=== PATIENT | male | born 1950 | race Caucasian/White ===

== ENCOUNTER 2020-07-17 11:28 | Inpatient (IN) | payer MEDICARE, SELFPAY ==
[~2020-07-17] VITALS: Ht 177.8 cm; Wt 91.9 kg
[2020-07-17 18:30] VITALS: BP 156/84
[2020-07-17] MEDS ORDERED: GLUCOSE 4GM CHEW TABLET PO PRN (18:55)
[2020-07-17] MEDS ORDERED: MOM 30ML SUSPENSION UDC PO PRN (18:55)
[2020-07-17] MEDS ORDERED: GLUCAGON INJ 1MG VIAL SC PRN (18:55)
[2020-07-17] MEDS ORDERED: MAALOX 30 ML SUSP *UDC PO PRN (18:55)
[2020-07-17] MEDS ORDERED: MIRALAX *UNIT DOSE* 17GM PACKET PO PRN (19:15)
[2020-07-17] MEDS ORDERED: ONDANSETRON 4MG/2ML VIAL IV PRN (19:15)
--- NOTE | 2020-07-17 19:15 | HPEPDOC ---
[facility] Medical History & Physical Date of Admission Jul 17, 2020 Date of Service: Jul 17, 2020 Attending Physician: ALISHA MISHRA MD History and Physical CHIEF COMPLAINT: [70 y/o male with cc of ruq pain x1 day] HISTORY OF PRESENT ILLNESS: [This is a 70 y/o male with a pmh of CAD s/p CABG, IDDM, CVA, RA, HLD, HTN, hypothyroidism who presents to our hospital as a tx from [facility] for suspected cholecystitis. Patient states that he has been experiencing abdominal pain that is focused primarily on the right side and feels like a deep pressure. Patient states that the pain radiates across his epigastrum and his luq at times. Patient states that he believes he had this issue several years ago and that it went away on its own. Patient admits to some constipation, states that he had his first bowel movement today in several days. Patient states that he feels fine besides his abdominal pain and denies n/v/d, fevers, chills, chest pain, sob, dizziness, syncope, malaise, fatigue, peripheral edema. Patient found to have elevated wbc of 20 and lactic acid of 2.1 at [facility], but negative ct. patient transferred to us for further w/u and possible surgical intervention. ] PAST MEDICAL HISTORY: 1. [See HPI PAST SURGICAL HISTORY: 1. [CABG]. 2. [Carotid endarterectomy]. 3. [Unspecified knee surgery]. SOCIAL HISTORY: Tobacco use:[Denies] ETOH: [Denies] Illicit drug use: [Denies] FAMILY HISTORY: Reviewed - none pertinent ALLERGIES: Please see below. REVIEW OF SYSTEMS: CONSTITUTIONAL: [See HPI]. HEENT: [Denies uri sx]. CARDIOVASCULAR: [See HPI]. RESPIRATORY: [See HPI]. GASTROINTESTINAL: [See HPI]. GENITOURINARY: [Denies dysuria]. SKIN: [Denies rash]. MUSCULOSKELETAL: [Denies acute joint/back pain.]. NEUROLOGICAL: [See HPI]. ENDOCRINE: [Hx of DM]. HEMATOLOGIC/LYMPHATIC: [Denies easy bruising]. HOME MEDICATIONS: Please see below. PHYSICAL EXAMINATION: VITAL SIGNS: Please see below. GENERAL APPEARANCE: [This is a wdwn 70 y/o male. He is laying in bed in no acute respiratory distress.]. HEENT: [No mass or lesion. EOMI. No scleral icterus. Patient is very hard of hearing. Nares patent. Oral mucosa moist without erythema.]. CARDIOVASCULAR: [Regular rate, rhythm. No murmurs, rubs, gallops]. LUNGS: [Good air flow b/l. No murmurs, rubs, gallops]. ABDOMEN: [Moderately tender to epigastrum, mildly tender to RUQ. Soft, non distended.]. MUSCULOSKELETAL: [No joint deformity]. EXTREMITIES: [No peripheral edema. No overlying skin changes. Pulses intact.]. NEUROLOGICAL: [Speech clear. A+Ox3. No focal deficits.]. PSYCHIATRIC: [Mood and affect appear appropriate.]. LABORATORY DATA: See below. IMAGING: [CT performed at [facility] unrevealing for cholecystitis.] MICROBIOLOGY: Please see below. ASSESSMENT: [This is a 70 y/o male with a pmh of CAD s/p CABG, IDDM, CVA, RA, HLD, HTN, hypothyroidism who presents to our hospital as a tx from [facility] for suspected cholecystitis. Patient had elevated white count and lactic acid but negative ct at outside hospital. Transferred to us for further w/u and possible surgical intervention.]. . PLAN: 1. [RUQ pain - Patient is not having that much discomfort to raise immediate alarm for cholecystitis, however patient did have elevated lactic, dose have leukocytosis. - CT scan negative at outside hospital, will f/u with gallbladder us here - Will begin zosyn - NPO overnight, ivf will be given - Dr. Singh, surgery, has been consulted. Assistance greatly appreciated - Will trend white count, bilirubin - zofran for nausea - tylenol for pain - Will admit under obs to pcu 2. Constipation - colace, miralax, milk of mag, senna - can move to suppository if patient dose not have bm 3. IDDM - sliding scale - continue at home basal insulin dose - hypoglycemic protocol - continue havapentin 4. HTN - continue lasix, metoprolol 5. CAD s/p CABG - continue asa, nitro 6. Hypothyroidism - continue synthroid 7. GERD - continue omeprazole 8. DVT prophylaxis - teds and scds ]. Vital Signs Vital Signs Date Time Temp Pulse Resp B/P (MAP) Pulse Ox O2 Delivery O2 Flow Rate FiO2 07/17/20 18:30 97.6 107 18 156/84 (108) 98 Room Air Home Medications Scheduled Aspirin (Aspirin EC) 81 Mg Tablet.dr, 81 MG PO DAILY Furosemide (Furosemide) 20 Mg Tablet, 40 MG PO DAILY Furosemide (Furosemide) 20 Mg Tablet, 20 MG PO QPM TAKES AT DINNERTIME Gabapentin (Gabapentin) 300 Mg Capsule, 300 MG PO TID Gluc Mariscal/Chondro Mariscal A/Vit C/Mn (Glucosamine Chondroitin Tab) 1 Each Tablet, 1 TAB PO QHS Insulin Degludec (Tresiba Flextouch U-100) 100 Unit/1 Ml Insuln.pen, 54 UNIT SC DAILY Insulin Human Lispro (Novolog) 100 Unit/1 Ml Vial, 1 DOSE SC ACHS PER SLIDING SCALE Levothyroxine Sodium (Synthroid) 100 Mcg Tablet, 100 MCG PO DAILY Metoprolol Tartrate (Metoprolol Tartrate) 50 Mg Tablet, 50 MG PO BID [place]-3 Fatty Acids/Fish Oil (Fish Oil 1,000 mg Capsule) 1 Each Capsule, 1,000 MG PO QHS Omeprazole (Omeprazole) 40 Mg Capsule.dr, 40 MG PO DAILY Egdvewhwvglz-Bpzr-Yxemdmou,Iso (Zosyn 3.375 gm/50 ml Galaxy) 3.375 Gm/50 Ml Froz.piggy, 3.375 GM IV ASDIRECTED STARTED AT [facility] Potassium Chloride (Potassium Chloride) 10 Meq Tab.er.prt, 10 MEQ PO BID Semaglutide (Ozempic) 0.25 Mg/0.2 Ml Pen.injctr, 0.5 MG SC QWEEK THURSDAYS Sennosides (Senna) 8.6 Mg Tablet, 1 TAB PO BID Tamsulosin HCl (Flomax) 0.4 Mg Capsule, 0.4 MG PO DAILY Scheduled PRN Nitroglycerin (Nitrostat) 0.4 Mg Tab.subl, 0.4 MG SL NITRO PRN for CHEST PAIN Allergies Coded Allergies: No Known Drug Allergies (Verified Allergy, Unknown, 07/17/20) A-FIB/CHADSVASC A-FIB History Current/History of A-Fib/PAF?: No Attending Note Attending Note Time of service 735pm is a 70 yr old M w IDDM2 and obesity who was transferred from [facility] for evaluation of L sided abdominal pain On PE he his McBurney sign was negative He will be admitted for evaluation of abdominal pain whose cause is TBD. Pending US of the abdomen we will ask the day time team to f/u w . Rest per DOMINICK Vail Jul 17, 2020 19:15 ALISHA MISHRA MD Jul 17, 2020 20:50
[2020-07-17 19:55] LABS: BASO # 0.1 10^3/uL (0.0-0.2); BASO % 0.2 % (0.0-1.0); HEMATOCRIT 39.8 % (42.0-52.0); HEMOGLOBIN 13.5 g/dl (13.5-17.5); LYMPH # 1.2 10^3/uL (1.5-5.0); LYMPH % 5.3 % (24.0-44.0); MEAN CORPUSCULAR HEMOGLOBIN 32.7 pg (27.0-33.0); MEAN CORPUSCULAR HGB CONC 33.9 g/dl (32.0-36.5); MEAN CORPUSCULAR VOLUME 96.4 fl (80.0-96.0); MONO # 1.9 10^3/uL (0.0-0.8); MONO % 8.6 % (2.0-8.0); NEUTROPHILS # 18.7 10^3/uL (1.5-8.5); NEUTROPHILS % 85.4 % (36.0-66.0); PLATELET COUNT, AUTOMATED 193 10^3/uL (150-450); RED BLOOD COUNT 4.13 10^6/uL (4.30-6.10)
[2020-07-17 19:56] LABS: WHITE BLOOD COUNT 21.9 10^3/uL (4.0-10.0)
[2020-07-17] MEDS: DOCUSATE SODIUM 100MG CAPSULE PO SCH (20:05)
[2020-07-17] MEDS: ACETAMINOPHEN TAB 650MG DOSE (2X325MG) PO PRN (20:05)
[2020-07-17] MEDS: NS 1,000 ML IV SCH (20:05)
[2020-07-17] MEDS ORDERED: ZOSY1SOL5 IV (20:15)
[2020-07-17] MEDS ORDERED: INSUH10VL SC (20:15)
[2020-07-17] MEDS: PIPERACILLIN/TAZOBACTAM SOD 3.375 GM in D5W MINI-BAG PLUS 50 ML IV SCH (20:37)
[2020-07-17 20:42] LABS: ALBUMIN 3.3 GM/DL (3.2-5.2); ALT/SGPT 36 U/L (12-78); BILIRUBIN,TOTAL 1.3 MG/DL (0.2-1.0); BLOOD UREA NITROGEN 20 MG/DL (7-18); CALCIUM LEVEL 8.7 MG/DL (8.8-10.2); CARBON DIOXIDE LEVEL 29 MEQ/L (21-32); CHLORIDE LEVEL 105 MEQ/L (98-107); CREATININE FOR GFR 1.23 MG/DL (0.70-1.30); GLOMERULAR FILTRATION RATE > 60.0 (>42); GLUCOSE, FASTING 259 MG/DL (70-100); MAGNESIUM LEVEL 2.3 MG/DL (1.8-2.4); POTASSIUM SERUM 4.5 MEQ/L (3.5-5.1); SODIUM LEVEL 139 MEQ/L (136-145); TOTAL PROTEIN 6.5 GM/DL (6.4-8.2)
[2020-07-17] MEDS ORDERED: FURO20TA2 PO ×2 (22:51)
[2020-07-17] MEDS ORDERED: POTA10TA67 PO (22:51)
[2020-07-17] MEDS ORDERED: METO50TA7 PO (22:51)
[2020-07-17] MEDS ORDERED: GLUCTAB6 PO (22:51)
[2020-07-17] MEDS ORDERED: FLOM0.4C39 PO (22:51)
[2020-07-17] MEDS ORDERED: FISH1000 PO (22:51)
[2020-07-17] MEDS ORDERED: GABA-282 PO (22:51)
[2020-07-17] MEDS ORDERED: SENN8.6T28 PO (22:51)
[2020-07-17] MEDS ORDERED: SYNT100T PO (22:51)
[2020-07-17] MEDS ORDERED: ASPI-161 PO (22:51)
[2020-07-17] MEDS ORDERED: OMEP-221 PO (22:51)
[2020-07-17] MEDS ORDERED: TRES1INJ2 SC (22:51)
[2020-07-17] MEDS ORDERED: NITR4TASL SL (22:51)
[2020-07-17] MEDS ORDERED: OZEM2INJ SC (22:51)
[2020-07-17] MEDS ORDERED: ATOR40TA75 PO (22:52)
[2020-07-18] VITALS: BP 149/70
[2020-07-18] MEDS ORDERED: FIORICET TAB PO PRN (00:20)
[2020-07-18] MEDS: HumaLOG INSULIN (NovoLOG) PER UNIT SC SCH ×5 (00:44→23:47)
[2020-07-18] MEDS ORDERED: NITROGLYCERIN 0.4 MG SUBL TABLET SL PRN (00:45)
[2020-07-18] MEDS: NS 1,000 ML IV SCH ×3 (00:45→19:00)
[2020-07-18] MEDS: PIPERACILLIN/TAZOBACTAM SOD 3.375 GM in D5W MINI-BAG PLUS 50 ML IV SCH ×4 (03:00→21:21)
[2020-07-18 05:39] VITALS: BP 123/61
[2020-07-18] MEDS: LEVOTHYROXINE 100MCG TABLET (0.1MG) PO SCH (06:27)
--- NOTE | 2020-07-18 07:01 | REPVR ---
PROCEDURE INFORMATION: Exam: US Abdomen, Limited; Right Upper Quadrant Exam date and time: 07/18/2020 6:24 AM Age: 70 years old Clinical indication: Abdominal pain; Additional info: Ruq pain TECHNIQUE: Imaging protocol: US abdomen. Real time ultrasound with image documentation. Limited exam focused on the right upper quadrant. COMPARISON: No relevant prior studies available. FINDINGS: Liver: Homogeneous appearance of the liver. Gallbladder: Diameter of the gallbladder wall 0.76 cm. Cholelithiasis at the gallbladder neck. Image 29 suggest the possibility of small rim of pericholecystic fluid versus edema within the thickened gallbladder wall. Common bile duct: There is no definite suggestion of intrahepatic biliary ductal prominence. Extrahepatic common bile duct is not visualized presumably also secondary to significant bowel gas. Pancreas: The pancreas is not delineated presumably secondary to overlapping bowel gas. Right kidney: The right kidney measures 11.8 x 6.1 x 5.9 cm. No hydronephrosis. IMPRESSION: 1. Cholelithiasis. 2. Cholecystitis with wall thickening which could be acute or chronic. In light of correlation to symptoms acute cholecystitis may be favored. 3. Nonvisualized pancreas or extrahepatic bile ducts. Electronically signed by: Autumn Crystal On 07/18/2020 07:00:41 AM
[2020-07-18 08:01] VITALS: BP 135/73
[2020-07-18 08:16] LABS: HEMATOCRIT 38.9 % (42.0-52.0); HEMOGLOBIN 13.2 g/dl (13.5-17.5); MEAN CORPUSCULAR HEMOGLOBIN 33.1 pg (27.0-33.0); MEAN CORPUSCULAR HGB CONC 33.9 g/dl (32.0-36.5); MEAN CORPUSCULAR VOLUME 97.5 fl (80.0-96.0); PLATELET COUNT, AUTOMATED 179 10^3/uL (150-450); RED BLOOD COUNT 3.99 10^6/uL (4.30-6.10); WHITE BLOOD COUNT 22.4 10^3/uL (4.0-10.0)
[2020-07-18] MEDS: METOPROLOL TART 50 MG TAB PO SCH ×2 (08:29→21:21)
[2020-07-18] MEDS: TAMSULOSIN 0.4 MG CAP PO SCH (08:29)
[2020-07-18] MEDS: ASPIRIN 81MG ENTERIC TABLET PO SCH (08:29)
[2020-07-18] MEDS: GABAPENTIN 300 MG CAP PO SCH ×3 (08:30→21:20)
[2020-07-18] MEDS: OMEPRAZOLE 20 MG CAP PO SCH (08:30)
[2020-07-18] MEDS: DOCUSATE SODIUM 100MG CAPSULE PO SCH ×2 (08:30→21:20)
[2020-07-18] MEDS: ACETAMINOPHEN TAB 650MG DOSE (2X325MG) PO PRN ×2 (08:30→16:28)
[2020-07-18] MEDS: SENNA 8.6 MG TAB (SENOKOT) PO SCH ×2 (08:30→21:20)
[2020-07-18 08:43] LABS: ALBUMIN 3.1 GM/DL (3.2-5.2); ALT/SGPT 32 U/L (12-78); BILIRUBIN,TOTAL 0.9 MG/DL (0.2-1.0); BLOOD UREA NITROGEN 15 MG/DL (7-18); CALCIUM LEVEL 8.6 MG/DL (8.8-10.2); CARBON DIOXIDE LEVEL 25 MEQ/L (21-32); CHLORIDE LEVEL 107 MEQ/L (98-107); CREATININE FOR GFR 1.01 MG/DL (0.70-1.30); GLOMERULAR FILTRATION RATE > 60.0 (>42); GLUCOSE, FASTING 204 MG/DL (70-100); MAGNESIUM LEVEL 2.3 MG/DL (1.8-2.4); POTASSIUM SERUM 4.4 MEQ/L (3.5-5.1); SODIUM LEVEL 138 MEQ/L (136-145); TOTAL PROTEIN 6.2 GM/DL (6.4-8.2)
--- NOTE | 2020-07-18 08:43 | IPNPDOC ---
Text Note Date of Service The patient was seen on 07/18/20. NOTE Gen. surgery. Dr. Singh. The patient is a 70-year-old male transferred from [facility] for suspected cholecystitis 07/17/20. The patient had reported some abdominal pain on the right side radiating to the epigastric area intermittently. This morning, the patient denies any abdominal pain. Denies nausea or vomiting. Denies diarrhea, had 1 bowel movement last evening. Temp 101.1 at 0801 this morning. Heart rate 118, respiratory rate 20, blood pressure 135/73, 97% room air. General. Awake and alert, the patient was resting comfortably in bed, easily arousable, no acute distress. MMM Abdomen. Soft, nontender, nondistended. This morning the patient is stating there is no tenderness with palpation over the epigastric or right upper quadrant areas. No guarding or rebound. WBC 22.4 increased slightly, hemoglobin 13.2, platelets 179 LFTs on admission within normal limits. CMP pending this morning. BC x 1 pending Assessment/plan The patient is a 70-year-old male admitted with suspected cholecystitis and had reported some abdominal pain on the right side radiating to the epigastric area. This morning, the patient reports no epigastric or right upper quadrant ten derness or discomfort. The patient is also reviewed and examined as per Dr. Singh. Right upper quadrant ultrasound imaging is reviewed by Dr. Singh. The patient appears to have a chronically thickened gallbladder wall. This is felt to be unlikely the source of the patient's current infection. However, WBC has increased and the pt is noted to have elevated temp this AM. We will request a HIDA scan to further evaluate for evidence of acute cholecystitis. VS,Fishbone, I+O VS, Fishbone, I+O Laboratory Tests 07/17/20 19:38 07/18/20 07:50 Vital Signs Date Time Temp Pulse Resp B/P (MAP) Pulse Ox O2 Delivery O2 Flow Rate FiO2 07/18/20 08:01 101.1 18 20 135/73 (93) 97 Room Air I&O- Last 24 Hours up to 6 AM 07/18/20 05:59 Intake Total 675 ml Output Total 800 ml Balance -125 ml Charlotte Looney Jul 18, 2020 08:43
[2020-07-18] MEDS ORDERED: FUROSEMIDE 40 MG TAB PO SCH (09:00)
[2020-07-18] MEDS ORDERED: LEVEMIR (INSULIN DETEMIR) 1 UNITS/0.01ML SC SCH ×2 (09:00)
[2020-07-18] MEDS ORDERED: ISOVUE-370 76% 100ML VIAL As Ordered ONE (11:24)
--- NOTE | 2020-07-18 11:27 | IPNPDOC ---
Text Note Date of Service The patient was seen on 07/18/20. NOTE Subjective: Patient was febrile overnight with temperature of 101.1. He stated that he feels better, but continues to have right upper quadrant pain. Objective: GENERAL APPEARANCE: NAD HEENT: no scleral icterus, no JVD, EOMI CARDIOVASCULAR: S1S2 LUNGS: CTA ABDOMEN: soft & mildly tender w palpitation in the right upper quadrant MUSCULOSKELETAL: no cyanosis, no swelling INTEGUMENT: no generalized pallor NEUROLOGICAL: cranial nerve function from 2-12 intact intact, follows commands, speech not dysarthric Assessment and plan Patient 70 years old male with past history of CAD s/p CABG, IDDM, CVA, RA, HLD, HTN, hypothyroidism who presents to our hospital as a tx from [facility] with right upper quadrant pain. Sepsis Unknown source of infection for now. There is suspicion for acute cholecystitis Patient developed fever of 101.1, leukocytosis, tachycardia Repeat blood culture CT abdomen/pelvis, CT chest IV fluid Continue Zosyn IV Right upper quadrant pain Patient developed fever, right upper quadrant pain Ultrasound showed Cholecystitis with wall thickening which could be acute or chronic Will proceed with HIDA scan Surgical team follows him LFT shows improvement, total bilirubin in the morning with in normal limit Type 2 diabetes Insulin sliding scale Detemir twice a day Hypertension Blood pressures under control Continue home meds Coronary artery diseases, status post CABG Continue home cardioprotective medications Hypothyroidism Continue Synthroid GERD Continue PPI VS,Fishbone, I+O VS, Fishbone, I+O Laboratory Tests 07/17/20 19:38 07/18/20 07:50 Vital Signs Date Time Temp Pulse Resp B/P (MAP) Pulse Ox O2 Delivery O2 Flow Rate FiO2 07/18/20 08:29 18 135/73 07/18/20 08:01 101.1 20 97 Room Air I&O- Last 24 Hours up to 6 AM 07/18/20 05:59 Intake Total 675 ml Output Total 800 ml Balance -125 ml GEE GORDNO DO Jul 18, 2020 11:27
--- NOTE | 2020-07-18 11:56 | REP ---
INDICATION: sepsis COMPARISON: None. TECHNIQUE: Standard helical technique after the intravenous administration of 100 cc Isovue 370. FINDINGS: There is no mediastinal or hilar adenopathy. There are no pleural or pericardial effusions. The imaged osseous structures are within normal limits. For comment on the imaged upper abdomen see CT abdomen and pelvis report made same day. Evaluation of the lung tatum shows scattered curvilinear densities throughout the lung tatum particularly in the lung bases consistent with fibrotic and/or subsegmental atelectatic changes. No abnormal nodules or masses are present. The aforementioned findings are accentuated by pulmonary field hypoexpansion IMPRESSION: Likely chronic lung field changes as described above but with no priors for comparison. There is no revised Fleischner society criteria on the recommendation for follow-up of such findings. Short interval follow-up is suggested. <Electronically signed by Alexsander Colón > 07/18/20 [id number]
--- NOTE | 2020-07-18 12:05 | REP ---
INDICATION: sepsis. COMPARISON: No prior CTs TECHNIQUE: Standard helical technique after the intravenous administration of 100 cc Isovue 370. No oral bowel preparatory contrast was administered prior to the exam. FINDINGS: There is pericholecystic edema with gallbladder wall thickening and enhancement. Within the gallbladder lumen there is a round 1.5 cm sized focal area of increased density without spray artifact. The overall density is much less than calcium. The liver is within normal limits. The spleen, pancreas, adrenal glands, and kidneys are within normal limits. The abdominal aorta and para-aortic regions are within normal limits. Nonenlarged para-aortic lymph nodes are noted. There is no evidence of free intraperitoneal air. The bowel loops and the mesenteries are within normal limits although seen in a limited fashion. The osseous structures are within normal limits for the patient's age. IMPRESSION: 1. Findings involving the gallbladder, as described above, consistent with inflammatory changes. 2. Round density within the gallbladder lumen as described above. Prior ultrasound showed cholelithiasis. No dense choleliths are seen by CT. The density could represent a sludge ball possibly even an enhancing mass. Follow-up is recommended. 3. There is increased subcutaneous density in the right anterior mid abdomen confined to the adipose tissue in the etiology of which is uncertain. This potentially represents an area of previous injection sites. Needs to be correlated clinically. <Electronically signed by Alexsander Colón > 07/18/20 [id number]
[2020-07-18] MEDS: POTASSIUM CHLORIDE 10 MEQ SR TABLET PO SCH ×2 (12:39→21:21)
[2020-07-18 12:59] VITALS: BP 124/67
[2020-07-18 16:20] VITALS: BP 119/58
[2020-07-18] MEDS ORDERED: FUROSEMIDE 20 MG TAB PO SCH (17:00)
[2020-07-18 20:00] VITALS: BP 115/56
[2020-07-18] MEDS: DEXTROSE 50% 50 ML SYRINGE IV PRN ×2 (20:05→23:47)
--- NOTE | 2020-07-18 20:14 | CR ---
CONSULTATION DATE: 07/17/2020 HISTORY OF PRESENT ILLNESS: The patient presented to the hospital after being seen in [facility] for abdominal pain with elevated white count. The pain mostly was across the epigastric area in his left upper quadrant and states that it was all across his upper abdomen. Then this has improved substantially and mostly has resolved at this time. He has had a previous episode in past that had resolved on its own although I am not sure exactly if he had cholecystitis. The patient had a CT scan at [facility] and reportedly was normal for the gallbladder area. There were some mildly elevated liver function tests. PAST MEDICAL HISTORY: Significant for a history of coronary artery disease, status post CABG, history of insulin dependent diabetes mellitus, history of CVA, history of rheumatoid arthritis, history of hyperlipidemia, history of hypertension, history of knee surgery. MEDICATIONS: 1. Aspirin. 2. Lasix. 3. Gabapentin. 4. Glucosamine. 5. Insulin. 6. Synthroid. 7. Metoprolol. 8. Omeprazole. 9. Ozempic. 10. Senna. 11. Flomax. 12. P.r.n. nitro. 13. He was placed on Zosyn at the outside hospital. PHYSICAL EXAMINATION: GENERAL APPEARANCE: The patient is a 70-year-old male who is quite hard of hearing but essentially states that he has no complaints of pain or discomfort at this time. LUNGS: Clear anteriorly. HEART: Regular with multiple irregular beats. ABDOMEN: Soft, mildly uncomfortable in the epigastric area but no significant guarding or rebound, no significant right upper quadrant pain or left upper quadrant pain. IMPRESSION AND PLAN: The patient had abdominal pain of undetermined etiology. At this point, I am not convinced that he has cholecystitis given that he really does not have impressive abdominal exam and I do agree he needs an ultrasound. I have been waiting for that to be performed here but it looks they will not be doing that until tomorrow morning. But in any case supportive care is warranted at this time with IV fluids, IV antibiotics and NPO. We will see how things look in the morning. If his white count is trending up or his bilirubin is trending up, we may need an MRI or a HIDA scan. However, if he is relatively stable or continues to have minimal discomfort or pain, we may want to look for other etiologies for his abdominal pain. In any case, we will await the findings on the ultrasound as well. Otherwise, I am not seeing an abdominal etiology for this at this time given the negative CT scan and the improving/resolving abdominal discomfort and pain with a significant lactic acidosis and elevated white count.
[2020-07-18] MEDS: LEVEMIR (INSULIN DETEMIR) 1 UNITS/0.01ML SC SCH (21:00)
[2020-07-18] MEDS: HEPARIN SOD (PORCINE) 5000UNITS/ML 1ML VIAL/SYRINGE SQ SCH (21:21)
[2020-07-18] MEDS ORDERED: HumaLOG INSULIN (NovoLOG) PER UNIT SC SCH (22:00)
[2020-07-19] VITALS: BP 100/57
[2020-07-19 04:00] VITALS: BP 115/58
[2020-07-19] MEDS: HumaLOG INSULIN (NovoLOG) PER UNIT SC SCH ×4 (04:00→16:58)
[2020-07-19] MEDS: PIPERACILLIN/TAZOBACTAM SOD 3.375 GM in D5W MINI-BAG PLUS 50 ML IV SCH ×4 (04:07→20:50)
[2020-07-19] MEDS: NS 1,000 ML IV SCH (04:07)
[2020-07-19 05:32] LABS: HEMATOCRIT 34.7 % (42.0-52.0); HEMOGLOBIN 11.4 g/dl (13.5-17.5); MEAN CORPUSCULAR HEMOGLOBIN 32.3 pg (27.0-33.0); MEAN CORPUSCULAR HGB CONC 32.9 g/dl (32.0-36.5); MEAN CORPUSCULAR VOLUME 98.3 fl (80.0-96.0); PLATELET COUNT, AUTOMATED 167 10^3/uL (150-450); RED BLOOD COUNT 3.53 10^6/uL (4.30-6.10); WHITE BLOOD COUNT 16.1 10^3/uL (4.0-10.0)
[2020-07-19] MEDS: LEVOTHYROXINE 100MCG TABLET (0.1MG) PO SCH (05:56)
[2020-07-19 06:03] LABS: ALBUMIN 2.6 GM/DL (3.2-5.2); ALT/SGPT 26 U/L (12-78); BILIRUBIN,TOTAL 0.7 MG/DL (0.2-1.0); BLOOD UREA NITROGEN 15 MG/DL (7-18); CALCIUM LEVEL 8.2 MG/DL (8.8-10.2); CARBON DIOXIDE LEVEL 25 MEQ/L (21-32); CHLORIDE LEVEL 110 MEQ/L (98-107); CREATININE FOR GFR 1.13 MG/DL (0.70-1.30); GLOMERULAR FILTRATION RATE > 60.0 (>42); GLUCOSE, FASTING 114 MG/DL (70-100); MAGNESIUM LEVEL 2.2 MG/DL (1.8-2.4); POTASSIUM SERUM 4.3 MEQ/L (3.5-5.1); SODIUM LEVEL 142 MEQ/L (136-145); TOTAL PROTEIN 5.5 GM/DL (6.4-8.2)
[2020-07-19 08:00] VITALS: BP 102/58
--- NOTE | 2020-07-19 09:03 | IPNPDOC ---
Text Note Date of Service The patient was seen on 07/19/20. NOTE Gen. surgery. Dr. Singh. The patient is a 70-year-old male transferred from [facility] for suspected cholecystitis 07/17/20. The patient had reported some abdominal pain on the right side radiating to the epigastric area intermittently. This morning, the patient is out of bed to the chair, having clear liquids for breakfast. Denies abdominal pain. Denies nausea or vomiting. Denies diarrhea, had 1 bowel movement 07/18. Afebrile. Heart rate 71, and respiratory rate 19, blood pressure 1:15/58, 98% room air. General. Awake and alert, the patient is out of bed to the chair, no acute distress. MMM Abdomen. Soft, nontender, nondistended. The patient has only minimal pain at most with deep palpation in the right upper quadrant area, no epigastric tenderness. No guarding or rebound. WBC 16.1, decreased, hemoglobin 11.4, platelets 167 BC x 1 negative, 2 pending Assessment/plan The patient is a 70-year-old male admitted with suspected cholecystitis and had reported some abdominal pain on the right side radiating to the epigastric area. This morning, the patient reports he is feeling better and is denying pain currently. The patient is also reviewed and examined as per Dr. Singh. Right upper quadrant ultrasound imaging is reviewed by Dr. Singh. The patient appears to have a chronically thickened gallbladder wall. The patient is currently afebrile with downtrending WBC. HIDA scan and ultrasound guided drain placement was placed on hold as the patient is having only minimal pain, has been afebrile, leukocytosis is improving. Currently tolerating clear liquids. Monitor. VS,Fishbone, I+O VS, Fishbone, I+O Laboratory Tests 07/19/20 05:13 Vital Signs Date Time Temp Pulse Resp B/P (MAP) Pulse Ox O2 Delivery O2 Flow Rate FiO2 07/19/20 08:00 98.3 91 18 102/58 (73) 96 Room Air I&O- Last 24 Hours up to 6 AM 07/19/20 06:00 Intake Total 2150 ml Output Total 900 ml Balance 1250 ml Charlotte Looney Jul 19, 2020 09:03
[2020-07-19] MEDS: OMEPRAZOLE 20 MG CAP PO SCH (10:08)
[2020-07-19] MEDS: SENNA 8.6 MG TAB (SENOKOT) PO SCH ×2 (10:08→20:50)
[2020-07-19] MEDS: POTASSIUM CHLORIDE 10 MEQ SR TABLET PO SCH ×2 (10:08→20:51)
[2020-07-19] MEDS: DOCUSATE SODIUM 100MG CAPSULE PO SCH ×2 (10:08→20:49)
[2020-07-19] MEDS: METOPROLOL TART 50 MG TAB PO SCH ×2 (10:08→20:55)
[2020-07-19] MEDS: TAMSULOSIN 0.4 MG CAP PO SCH (10:08)
[2020-07-19] MEDS: ASPIRIN 81MG ENTERIC TABLET PO SCH (10:09)
[2020-07-19] MEDS: GABAPENTIN 300 MG CAP PO SCH ×3 (10:09→20:51)
[2020-07-19] MEDS: LEVEMIR (INSULIN DETEMIR) 1 UNITS/0.01ML SC SCH ×3 (10:09→20:53)
[2020-07-19] MEDS: HEPARIN SOD (PORCINE) 5000UNITS/ML 1ML VIAL/SYRINGE SQ SCH ×2 (10:09→20:50)
[2020-07-19 12:00] VITALS: BP 100/56
[2020-07-19] MEDS ORDERED: DEXTROSE 50% 50 ML SYRINGE IV PRN (12:30)
[2020-07-19] MEDS ORDERED: GLUCAGON INJ 1MG VIAL SC PRN (12:30)
[2020-07-19] MEDS ORDERED: GLUCOSE 4GM CHEW TABLET PO PRN (12:30)
--- NOTE | 2020-07-19 14:50 | IPNPDOC ---
Text Note Date of Service The patient was seen on 07/19/20. NOTE Subjective: No any acute events overnight. Patient stated that his abdominal pain resolved and he has a good appetite. Objective: GENERAL APPEARANCE: NAD HEENT: no scleral icterus, no JVD, EOMI CARDIOVASCULAR: S1S2 LUNGS: CTA ABDOMEN: soft & non-tender w palpitation MUSCULOSKELETAL: no cyanosis, no swelling INTEGUMENT: no generalized pallor NEUROLOGICAL: cranial nerve function from 2-12 intact intact, follows commands, speech not dysarthric Assessment and plan Patient 70 years old male with past history of CAD s/p CABG, IDDM, CVA, RA, HLD, HTN, hypothyroidism who presents to our hospital as a tx from [facility] with right upper quadrant pain. Sepsis Unknown source of infection for now. There was suspicion for acute cholecystitis Patient developed fever of 101.1, leukocytosis, tachycardia on admission Repeat blood culture negative CT abd/pelvis there is pericholecystic edema with gallbladder wall thickening and enhancement. Within the gallbladder lumen there is a round 1.5 cm sized focal area of increased density without spray artifact Continue Zosyn IV Leukocytosis improved Right upper quadrant pain Patient developed fever, right upper quadrant pain Ultrasound showed Cholecystitis with wall thickening which could be acute or chronic No needs for surgical intervention per Surgical team LFT shows improvement Patient tolerates clear liquid diet Type 2 diabetes Insulin sliding scale Detemir twice a day Hypertension Blood pressures under control Continue home meds Coronary artery diseases, status post CABG Continue home cardioprotective medications Hypothyroidism Continue Synthroid GERD Continue PPI VS,Fishbone, I+O VS, Fishbone, I+O Laboratory Tests 07/19/20 05:13 Vital Signs Date Time Temp Pulse Resp B/P (MAP) Pulse Ox O2 Delivery O2 Flow Rate FiO2 07/19/20 12:00 99.3 75 18 100/56 (71) 97 Room Air I&O- Last 24 Hours up to 6 AM 07/19/20 06:00 Intake Total 2150 ml Output Total 900 ml Balance 1250 ml GEE GORDON DO Jul 19, 2020 14:50
--- NOTE | 2020-07-19 14:52 | IPNPDOC ---
Text Note Date of Service The patient was seen on 07/19/20. NOTE Subjective: No any acute events overnight. Patient stated that his abdominal pain resolved and he has a good appetite. VS,Fishbone, I+O VS, Fishbone, I+O Laboratory Tests 07/19/20 05:13 Vital Signs Date Time Temp Pulse Resp B/P (MAP) Pulse Ox O2 Delivery O2 Flow Rate FiO2 07/19/20 12:00 99.3 75 18 100/56 (71) 97 Room Air I&O- Last 24 Hours up to 6 AM 07/19/20 06:00 Intake Total 2150 ml Output Total 900 ml Balance 1250 ml GEE GORDON DO Jul 19, 2020 14:52
[2020-07-19 20:00] VITALS: BP 143/65
[2020-07-19] MEDS: ACETAMINOPHEN TAB 650MG DOSE (2X325MG) PO PRN (20:51)
[2020-07-19] MEDS ORDERED: HumaLOG INSULIN (NovoLOG) PER UNIT SC SCH (21:00)
[2020-07-20] MEDS: PIPERACILLIN/TAZOBACTAM SOD 3.375 GM in D5W MINI-BAG PLUS 50 ML IV SCH ×2 (03:09→09:34)
[2020-07-20 03:57] LABS: HEMATOCRIT 33.1 % (42.0-52.0); MEAN CORPUSCULAR HEMOGLOBIN 32.9 pg (27.0-33.0); MEAN CORPUSCULAR HGB CONC 33.2 g/dl (32.0-36.5); MEAN CORPUSCULAR VOLUME 99.1 fl (80.0-96.0); PLATELET COUNT, AUTOMATED 180 10^3/uL (150-450); RED BLOOD COUNT 3.34 10^6/uL (4.30-6.10)
[2020-07-20 04:23] LABS: ALBUMIN 2.5 GM/DL (3.2-5.2); ALT/SGPT 35 U/L (12-78); BILIRUBIN,TOTAL 0.7 MG/DL (0.2-1.0); BLOOD UREA NITROGEN 16 MG/DL (7-18); CALCIUM LEVEL 8.2 MG/DL (8.8-10.2); CARBON DIOXIDE LEVEL 25 MEQ/L (21-32); CHLORIDE LEVEL 110 MEQ/L (98-107); GLOMERULAR FILTRATION RATE > 60.0 (>42); GLUCOSE, FASTING 50 MG/DL (70-100); MAGNESIUM LEVEL 2.2 MG/DL (1.8-2.4); POTASSIUM SERUM 4.2 MEQ/L (3.5-5.1); SODIUM LEVEL 142 MEQ/L (136-145); TOTAL PROTEIN 5.4 GM/DL (6.4-8.2)
[2020-07-20 04:27] VITALS: BP 92/51
[2020-07-20] MEDS: LEVOTHYROXINE 100MCG TABLET (0.1MG) PO SCH (06:23)
[2020-07-20] MEDS ORDERED: SLF 3 ML SYR IV PRN (07:55)
[2020-07-20 08:00] VITALS: BP 115/60
--- NOTE | 2020-07-20 09:08 | IPNPDOC ---
Text Note Date of Service The patient was seen on 07/20/20. NOTE Gen. surgery. Dr. Singh. The patient is a 70-year-old male transferred from [facility] for suspected cholecystitis 07/17/20. The patient had reported some abdominal pain on the right side radiating to the epigastric area intermittently. This morning, the patient is out of bed to the chair, having clear liquids for breakfast. Denies abdominal pain. Denies nausea or vomiting. Denies diarrhea. Reports BM this AM. Afebrile. VSS General. Awake and alert, the patient is out of bed to the chair, no acute distress. MMM Abdomen. Soft, nontender, nondistended. The patient has no pain this AM with deep palpation in the right upper quadrant area, no epigastric tenderness. No guarding or rebound. WBC 13, decreased. BC x 3 negative. Assessment/plan The patient is a 70-year-old male admitted with suspected cholecystitis and had reported some abdominal pain on the right side radiating to the epigastric area. This morning, the patient reports he is tolerating clear liquids and is denying pain currently. The patient is also reviewed and examined as per Dr. Mix this morning. Right upper quadrant ultrasound imaging is previously reviewed by Dr. Singh. The patient appears to have a chronically thickened gallbladder wall. The patient is currently afebrile with downtrending WBC. HIDA scan and ultrasound guided drain placement was placed on hold as the patient was having only minimal pain. Currently he has no pain, has been afebrile, leukocytosis is improving. Currently tolerating clear liquids. Plan to advance diet as tolerated. If the patient tolerates diet, could discharge today if cleared from medical standpoint. Plan to continue antibiotics for 2 weeks, Outpatient follow-up in [address] Singh to discuss outpatient elective cholecystectomy. VS,Fishbone, I+O VS, Fishbone, I+O Laboratory Tests 07/20/20 03:37 Vital Signs Date Time Temp Pulse Resp B/P (MAP) Pulse Ox O2 Delivery O2 Flow Rate FiO2 07/20/20 08:00 98.3 81 17 115/60 (78) 94 Room Air I&O- Last 24 Hours up to 6 AM 07/20/20 05:59 Intake Total 1545 ml Output Total 0 ml Balance 1545 ml Charlotte Looney Jul 20, 2020 09:08
[2020-07-20] MEDS: LEVEMIR (INSULIN DETEMIR) 1 UNITS/0.01ML SC SCH (09:31)
[2020-07-20] MEDS: HumaLOG INSULIN (NovoLOG) PER UNIT SC SCH ×2 (09:32→12:23)
[2020-07-20] MEDS: HEPARIN SOD (PORCINE) 5000UNITS/ML 1ML VIAL/SYRINGE SQ SCH (09:32)
[2020-07-20] MEDS: DOCUSATE SODIUM 100MG CAPSULE PO SCH (09:32)
[2020-07-20 09:33] VITALS: BP 115/60
[2020-07-20] MEDS: METOPROLOL TART 50 MG TAB PO SCH (09:33)
[2020-07-20] MEDS: ASPIRIN 81MG ENTERIC TABLET PO SCH (09:33)
[2020-07-20] MEDS: SENNA 8.6 MG TAB (SENOKOT) PO SCH (09:33)
[2020-07-20] MEDS: OMEPRAZOLE 20 MG CAP PO SCH (09:33)
[2020-07-20] MEDS: GABAPENTIN 300 MG CAP PO SCH (09:33)
[2020-07-20] MEDS: POTASSIUM CHLORIDE 10 MEQ SR TABLET PO SCH (09:33)
[2020-07-20] MEDS: TAMSULOSIN 0.4 MG CAP PO SCH (09:33)
[2020-07-20] MEDS ORDERED: AUGM875T28 PO ×2 (10:14→10:20)
--- NOTE | 2020-07-20 12:57 | DS.PDOC ---
Discharge Summary General Date of Admission Jul 18, 2020 at 13:35 Date of Discharge 07/20/20 Discharge Summary PROCEDURES PERFORMED DURING STAY: [None]. ADMITTING DIAGNOSES: Sepsis Right upper quadrant pain Type 2 diabetes Hypertension Hypothyroidism GERD Coronary artery diseases, status post CABG DISCHARGE DIAGNOSES: Sepsis Right upper quadrant pain Type 2 diabetes Hypertension Hypothyroidism GERD Coronary artery diseases, status post CABG COMPLICATIONS/CHIEF COMPLAINT: Right Upper Quad Pain. HISTORY OF PRESENT ILLNESS: Patient 70 years old male with past history of CAD s/p CABG, IDDM, CVA, RA, HLD, HTN, hypothyroidism who presents to our hospital as a tx from [facility] with right upper quadrant pain. HOSPITAL COURSE: During the hospital stay the following issues addressed Sepsis Resolved Unknown source of infection for now. There was suspicion for acute cholecystitis Patient developed fever of 101.1, leukocytosis, tachycardia on admission Repeat blood culture negative CT abd/pelvis there is pericholecystic edema with gallbladder wall thickening and enhancement. Within the gallbladder lumen there is a round 1.5 cm sized focal area of increased density without spray artifact Patient received Zosyn IV Leukocytosis improved, sepsis resolved Right upper quadrant pain Patient developed fever, right upper quadrant pain Ultrasound showed Cholecystitis with wall thickening which could be acute or chr onic No needs for surgical intervention per Surgical team LFT shows improvement Patient tolerates diet Type 2 diabetes Insulin sliding scale Detemir twice a day Hypertension Blood pressures under control Continue home meds Coronary artery diseases, status post CABG Continue home cardioprotective medications Hypothyroidism Continue Synthroid GERD Continue PPI DISCHARGE MEDICATIONS: Please see below. ALLERGIES: Please see below. PHYSICAL EXAMINATION ON DISCHARGE: VITAL SIGNS: Please see below. GENERAL APPEARANCE: NAD HEENT: no scleral icterus, no JVD, EOMI CARDIOVASCULAR: S1S2 LUNGS: CTA ABDOMEN: soft & non-tender w palpitation MUSCULOSKELETAL: no cyanosis, no swelling INTEGUMENT: no generalized pallor NEUROLOGICAL: cranial nerve function from 2-12 intact intact, follows commands, speech not dysarthric LABORATORY DATA: Please see below. IMAGING: See above PROGNOSIS: Fair ACTIVITY: [As tolerated]. DIET: Diabetes DISCHARGE INSTRUCTIONS: Follow-up with Dr. Singh in 2 weeks DISCHARGE CONDITION: [Stable]. TIME SPENT ON DISCHARGE: 40 minutes. Vital Signs/I&Os Vital Signs Date Time Temp Pulse Resp B/P (MAP) Pulse Ox O2 Delivery O2 Flow Rate FiO2 07/20/20 12:00 Room Air 07/20/20 09:33 81 115/60 07/20/20 08:00 98.3 17 94 I&O- Last 24 Hours up to 6 AM 07/20/20 06:00 Intake Total 1195 ml Output Total 0 ml Balance 1195 ml Laboratory Data Labs 24H Laboratory Tests 2 07/19/20 16:40: Bedside Glucose (Misc Panel) 330H 07/19/20 20:39: Bedside Glucose (Misc Panel) 151H 07/19/20 23:32: Bedside Glucose (Misc Panel) 95 07/20/20 03:37: Nucleated Red Blood Cells % (auto) 0.0, Anion Gap 7L, Glomerular Filtration Rate > 60.0, Calcium Level 8.2L, Magnesium Level 2.2, Total Bilirubin 0.7, Aspartate Amino Transf (AST/SGOT) 28, Alanine Aminotransferase (ALT/SGPT) 35, Alkaline Phosphatase 88, Total Protein 5.4L, Albumin 2.5L, Albumin/Globulin Ratio 0.9 07/20/20 04:57: Bedside Glucose (Misc Panel) 68L 07/20/20 06:22: Bedside Glucose (Misc Panel) 91 07/20/20 09:21: Bedside Glucose (Misc Panel) 244H 07/20/20 12:14: Bedside Glucose (Misc Panel) 212H CBC/BMP Laboratory Tests 07/20/20 03:37 FSBS Laboratory Tests Test 07/19/20 16:40 07/19/20 20:39 07/19/20 23:32 07/20/20 04:57 Range/Units Bedside Glucose (Misc Panel) 330 151 95 68 83-110 MG/DL Test 07/20/20 06:22 07/20/20 09:21 07/20/20 12:14 Range/Units Bedside Glucose (Misc Panel) 91 244 212 83-110 MG/DL Microbiology Microbiology 07/18/20 Blood Culture - Preliminary, Resulted No Growth after 48 hours. All Specime... 07/18/20 Blood Culture - Preliminary, Resulted No Growth after 48 hours. All Specime... 07/17/20 Blood Culture - Preliminary, Resulted No Growth after 48 hours. All Specime... Discharge Medications Scheduled Amoxicillin/Potassium Clav (Augmentin 875-125 Tablet) 1 Each Tablet, 1 TAB PO BID Aspirin (Aspirin EC) 81 Mg Tablet.dr, 81 MG PO DAILY, (Reported) Furosemide (Furosemide) 20 Mg Tablet, 40 MG PO DAILY, (Reported) Gabapentin (Gabapentin) 300 Mg Capsule, 300 MG PO TID, (Reported) Gluc Mariscal/Chondro Mariscal A/Vit C/Mn (Glucosamine Chondroitin Tab) 1 Each Tablet, 1 TAB PO QHS, (Reported) Insulin Degludec (Tresiba Flextouch U-100) 100 Unit/1 Ml Insuln.pen, 54 UNIT SC DAILY, (Reported) Levothyroxine Sodium (Synthroid) 100 Mcg Tablet, 100 MCG PO DAILY, (Reported) Metoprolol Tartrate (Metoprolol Tartrate) 50 Mg Tablet, 50 MG PO BID, (Reported) [place]-3 Fatty Acids/Fish Oil (Fish Oil 1,000 mg Capsule) 1 Each Capsule, 1,000 MG PO QHS, (Reported) Omeprazole (Omeprazole) 40 Mg Capsule.dr, 40 MG PO DAILY, (Reported) Potassium Chloride (Potassium Chloride) 10 Meq Tab.er.prt, 10 MEQ PO BID, (Rep orted) Semaglutide (Ozempic) 0.25 Mg/0.2 Ml Pen.injctr, 0.5 MG SC QWEEK, (Reported) THURSDAYS Sennosides (Senna) 8.6 Mg Tablet, 1 TAB PO BID, (Reported) Tamsulosin HCl (Flomax) 0.4 Mg Capsule, 0.4 MG PO DAILY, (Reported) Scheduled PRN Nitroglycerin (Nitrostat) 0.4 Mg Tab.subl, 0.4 MG SL NITRO PRN for CHEST PAIN, (Reported) Allergies Coded Allergies: No Known Drug Allergies (Verified Allergy, Unknown, 07/17/20) GEE GORDON DO Jul 20, 2020 12:57
[2020-07-20] MEDS ORDERED: SLF 3 ML SYR IV SCH (14:00)
== END 2020-07-20 15:34 | disposition home or self-care (01) | DRG 872 ==
LOC: M PCU 18:29 → INTOOBSV 18:29 → M PCU 19:22 → OBSVTOIN 07-18 13:35 → M PCU 07-19 08:28
PROVIDERS: ADMIT Internal Medicine; ATTEND Internal Medicine
DX: A41.9 Sepsis, unspecified organism (principal); K81.0 Acute cholecystitis; E11.9 Type 2 diabetes mellitus without complications; I10 Essential (primary) hypertension; K21.9 Gastro-esophageal reflux disease without esophagitis; E03.9 Hypothyroidism, unspecified; I25.10 Atherosclerotic heart disease of native coronary artery without angina pectoris; Z95.1 Presence of aortocoronary bypass graft; Z86.73 Personal history of transient ischemic attack (TIA), and cerebral infarction without residual deficits; Z79.82 Long term (current) use of aspirin; Z79.899 Other long term (current) drug therapy; Z79.4 Long term (current) use of insulin; K59.00 Constipation, unspecified

== ENCOUNTER 2020-09-04 07:43 | Day surgery (SDC) | payer MEDICARE ==
[~2020-09-04] VITALS: Ht 177.8 cm; Wt 93.0 kg
[~2020-09-04 07:43] MED LIST: ASPI-161 PO; ATOR40TA75 PO; AUGM875T28 PO; FISH1000 PO; FLOM0.4C39 PO; FURO20TA2 PO; GABA-282 PO; GLUCTAB6 PO; INSUH10VL SC; INSUHUMDS; LISI2.5T2 PO; LR 1,000 ML IV ONE; METO50TA7 PO; NITR4TASL SL; OMEP-221 PO; OZEM2INJ SC; POTA10TA67 PO; SENN8.6T28 PO; SYNT100T PO; TRES1INJ2 SC; ZOSY1SOL5 IV; ceFAZolin SOD 2 GM in IV 1 EA IV ONE
[2020-09-04] MEDS ORDERED: BUPIVACAINE/EPIN 0.25% 30 ML VIAL As Ordered ONE (09:53)
[2020-09-04] MEDS ORDERED: ONDANSETRON 4MG/2ML VIAL As Ordered ONE (10:20)
[2020-09-04] MEDS ORDERED: SUGAMMADEX SODIUM 500 MG/5 ML VIAL (BRIDION) As Ordered ONE (10:20)
[2020-09-04] MEDS ORDERED: ROCURONIUM BROMIDE 50 MG/5 ML VIAL As Ordered ONE ×2 (10:20→10:43)
[2020-09-04] MEDS ORDERED: fentaNYL 250 MCG/5 ML INJECTION (J3010) As Ordered ONE (10:20)
[2020-09-04] MEDS ORDERED: MIDAZOLAM INJ 2MG/2ML VIAL (J2250 PER 1MG) As Ordered ONE (10:20)
[2020-09-04] MEDS ORDERED: propofoL 200 MG/20 ML VIAL As Ordered ONE (10:20)
[2020-09-04] MEDS ORDERED: dexameTHASONE 4 MG/ML 1ML VIAL (J1100 PER 1MG) As Ordered ONE (10:20)
[2020-09-04] MEDS ORDERED: LIDOCAINE 2% 100MG/5ML SDV (FOR ANES.) As Ordered ONE (10:20)
[2020-09-04] MEDS ORDERED: PHENYLephrine 500MCG 5ML (100MCG/ML) SYRINGE As Ordered ONE (10:21)
[2020-09-04] MEDS ORDERED: KETOROLAC 60MG 2ML VIAL As Ordered ONE (10:40)
[2020-09-04] MEDS ORDERED: LABETALOL 100MG/20ML VIAL As Ordered ONE (10:53)
[2020-09-04] MEDS ORDERED: fentaNYL 100 MCG/2 ML INJECTION (J3010) IV PRN (11:55)
[2020-09-04] MEDS ORDERED: METOCLOPRAMIDE INJ 10MG/2ML VIAL (J2765 PER 1) IV PRN (11:55)
[2020-09-04] MEDS ORDERED: traMADol 50 MG TAB PO PRN ×2 (11:55)
[2020-09-04] MEDS ORDERED: NS 1,000 ML IV SCH (11:55)
[2020-09-04] MEDS ORDERED: LR 1,000 ML IV SCH (11:55)
[2020-09-04] MEDS ORDERED: ONDANSETRON 4MG/2ML VIAL IV PRN (11:55)
[2020-09-04] MEDS ORDERED: PERCOCET 5MG/325MG TAB PO PRN (11:55)
--- NOTE | 2020-09-04 12:17 | RO ---
OPERATIVE NOTE DATE OF OPERATION: 09/04/2020 PREOPERATIVE DIAGNOSIS: History of cholecystitis. POSTOPERATIVE DIAGNOSIS: History of cholecystitis. PROCEDURE: Laparoscopic cholecystectomy. SURGEON: Gal Singh Jr., MD. SHOE REPAIR SUPERVISOR: ANESTHESIA: General endotracheal anesthesia. BRIEF PROCEDURE SUMMARY: The patient was brought to the operating room and was given general anesthesia. After adequate anesthesia and preoperative antibiotics were given, the patient was prepped and draped in the usual sterile fashion. Next, a supraumbilical incision was made with a skin knife. Blunt dissection was carried down to fascia. Veress needle placed into the abdominal cavity and insufflated to 15 mmHg. Dilating 10 mm trocar was placed, and under direct visualization an epigastric and two lateral trocars were placed. Next, there were some adhesions up against the entire abdominal wall which were taken down with hook cautery, and there were also some significant adhesions of the omentum and the duodenum up against the gallbladder itself. Gallbladder was very fibrosed and contracted. Eventually once the adhesions were taken down, I was able to grasp the gallbladder, retract it superiorly, and dissection on the lateral aspect was performed with the hook cautery staying on the gallbladder itself. Unfortunately given the significant fibrosis in this area, it was very difficult to dissect out the planes between cystic artery, cystic duct, etc. Later on in the dissection after slowly and meticulously taking peanut dissectors and [place] dissectors, I was able to identify that there was an anterior cystic artery that was going up onto the gallbladder itself, and a stone was impacted in the neck of the gallbladder, and trying to get around this given that it was so fibrosed, I ended up getting into the neck of the gallbladder here. Given that I felt that dissection distally might end up with a biliary injury, I felt that transecting the neck of the gallbladder in this area was more reasonable. This was where I could see the stone, and with retraction of the gallbladder and once I had gotten into the neck of the gallbladder area, there was some bile draining back. There was also some stone material in this neck area. Thus, I transected it just below the stone and using a PDS loop placed this below the tear in the neck of the gallbladder. This may have been an extremely short cystic duct. It was hard to tell given all the fibrosis in this area, but in general I did not see any additional branches going off at this point. The gallbladder then was taken from the gallbladder bed with electrocautery. However, given the significant thickness and fibrosis of the gallbladder wall to the liver bed, I then stayed in the gallbladder itself and then just left a small rim on the liver bed. This was later cauterized of the mucosa. After this was removed and placed in an Endo-Catch bag, the stone also was removed and placed in the Endo-Catch bag. The right upper quadrant was copiously irrigated. No bile leak was appreciated. No bleeding. The PDS Endoloop was intact as well as the clips on the cystic artery which were seen and quite pulsatile in nature. 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 In any case given the overall inflammatory component and dissection performed, I used Tisseel and placed this over the bed of the dissection and into the area of the PDS Endoloop. All trocars were removed under direct visualization after the right upper quadrant was copiously irrigated until clear, and all incisions closed with 4-0 Vicryl after the umbilicus was closed with 0 Vicryl in the fascial layer. Steri-Strips and a dry sterile dressing were applied. The patient was awakened, extubated, and brought to the recovery room awake, alert, and hemodynamically stable. Sponge and needle counts correct x2.
[2020-09-04 14:00] VITALS: BP 171/66
== END 2020-09-04 14:05 | disposition home or self-care (01) ==
LOC: M SDC 07:43
PROVIDERS: ATTEND Surgery
DX: K80.20 Calculus of gallbladder without cholecystitis without obstruction (principal); I25.10 Atherosclerotic heart disease of native coronary artery without angina pectoris; I25.2 Old myocardial infarction; E11.9 Type 2 diabetes mellitus without complications; Z86.73 Personal history of transient ischemic attack (TIA), and cerebral infarction without residual deficits; I10 Essential (primary) hypertension; E03.9 Hypothyroidism, unspecified; Z79.82 Long term (current) use of aspirin; Z79.899 Other long term (current) drug therapy; K21.9 Gastro-esophageal reflux disease without esophagitis
CPT/HCPCS: 47562; 88304; J0690; J1100; J1885; J2250; J2370; J2405; J3010